=== PATIENT | female | born 1970 | race Caucasian/White ===

== ENCOUNTER 2020-12-30 10:51 | Inpatient (IN) | payer OTHER ==
[~2020-12-30] VITALS: Ht 154.9 cm; Wt 79.4 kg
[2020-12-30] MEDS ORDERED: MAGNESIUM/ALUMINUM HYDROXIDE/SIMETHICONE 30ML UDC PO STA (14:08)
[2020-12-30 15:27] LABS: BASOPHILS % 0.4 % (0.0-2.0); EOSINOPHILS % 0.3 % (0.0-5.0); HEMATOCRIT. 43.4 % (36.0-48.0); HEMOGLOBIN. 14.7 g/dL (12.0-16.0); LYMPHOCYTES % 9.7 % (20.0-50.0); MEAN CORPUSCULAR HEMOGLOBIN 26.7 pg (28.0-32.0); MEAN CORPUSCULAR VOLUME 78.8 fL (81.0-99.0); MONOCYTES % 10.2 % (2.0-8.0); NEUTROPHILS % 79.4 % (40.0-76.0); PLATELET 509 x1000/uL (130-400); RED CELL DISTRIBUTION WIDTH 13.9 % (11.6-14.6)
[2020-12-30 15:31] LABS: CHLORIDE 99 mEq/L (98-107)
[2020-12-30 15:36] LABS: ETHANOL BLOOD < 10 mg/dL
[2020-12-30 15:39] LABS: HCG SCREEN NEGATIVE
[2020-12-30] MEDS ORDERED: HYDROCODONE/ACETAMINOPHEN 10/325MG TABLET PO ONE (17:15)
[2020-12-30 17:45] LABS: CLARITY URINE CLOUDY (CLEAR); COLOR URINE DARK YELLOW (YELLOW); KETONES URINE 1+ (NEGATIVE); LEUKOCYTE ESTERASE URINE 2+ (NEGATIVE); NITRITE URINE POSITIVE (NEGATIVE); OCCULT BLOOD URINE TRACE (NEGATIVE); PH URINE 5.5 (4.5-8.0); PROTEIN URINE 1+ (NEGATIVE); SPECIFIC GRAVITY URINE 1.025 (1.005-1.030)
[2020-12-30 17:56] LABS: *BARBITURATES SCREEN URINE NEGATIVE (NEGATIVE); *BENZODIAZEPINES SCREEN URINE NEGATIVE (NEGATIVE)
[2020-12-30 17:57] LABS: *COCAINE SCREEN URINE NEGATIVE (NEGATIVE); CANNABINOID URINE SCREEN NEGATIVE (NEGATIVE); METHADONE URINE SCREEN NEGATIVE (NEGATIVE); OPIATES URINE SCREEN NEGATIVE (NEGATIVE); PHENCYCLIDINE URINE SCREEN NEGATIVE (NEGATIVE)
[2020-12-30 18:05] LABS: *AMPHETAMINES SCREEN URINE PRESUMTIVE POSITIVE (NEGATIVE)
[2020-12-30] MEDS ORDERED: CEFTRIAXONE 1 G PREMIX 50 ML IV ONE (19:30)
[2020-12-30] MEDS ORDERED: SODIUM CHLORIDE 0.9% 1,000 ML IV ONE (19:30)
[2020-12-30] MEDS ORDERED: METRONIDAZOLE 500 MG PREMIX 100 ML IV ONE (19:30)
[2020-12-31] MEDS ORDERED: MORPHINE SULFATE 4 MG/ML CPJ (NOT FOR IM USE) IV NR (04:00)
[2020-12-31] MEDS ORDERED: ONDANSETRON HCL 4MG/2ML INJ IV NR (04:00)
[2020-12-31] MEDS ORDERED: MAGNESIUM/ALUMINUM HYDROXIDE/SIMETHICONE 30ML UDC PO PRN (04:30)
[2020-12-31] MEDS ORDERED: ACETAMINOPHEN 325MG TABLET PO PRN ×2 (04:30)
[2020-12-31] MEDS ORDERED: DIPHENHYDRAMINE 50MG/ML VIAL IV PRN (04:30)
[2020-12-31] MEDS ORDERED: IPRATROPIUM/ALBUTEROL 0.5-3(2.5)MG/3ML NEB HHN PRN (04:30)
[2020-12-31] MEDS ORDERED: GUAIFENESIN 200MG/10ML SUGAR FREE UDC PO PRN (04:30)
[2020-12-31] MEDS ORDERED: ONDANSETRON HCL 4MG/2ML INJ IV PRN (04:30)
[2020-12-31] MEDS ORDERED: DOCUSATE SODIUM 100MG CAPSULE PO PRN (04:30)
[2020-12-31] MEDS ORDERED: LORAZEPAM 2MG/ML CPJ IV PRN (04:30)
[2020-12-31] MEDS ORDERED: NALOXONE HCL 0.4MG/ML VIAL IV PRN (04:45)
[2020-12-31] MEDS ORDERED: METRONIDAZOLE 500 MG PREMIX 100 ML IV SCH (05:00)
[2020-12-31] MEDS: CLONIDINE 0.1MG TABLET PO PRN (06:11)
[2020-12-31] MEDS: MORPHINE SULFATE 2 MG/ML CPJ (NOT FOR IM USE) IV PRN ×2 (06:23→10:17)
[2020-12-31] MEDS: DEXT 5%/0.45% NACL 1000ML 1,000 ML IV SCH ×2 (06:53→15:00)
[2020-12-31] MEDS ORDERED: CEFTRIAXONE 1 G PREMIX 50 ML IV SCH ×2 (09:00→21:00)
[2020-12-31 11:30] VITALS: BP 142/62
[2020-12-31 11:55] VITALS: BP 142/65
[2020-12-31] MEDS ORDERED: CEFTRIAXONE 1,000 MG in DEXTROSE 5% WATER 50 ML IV NR (12:30)
[2020-12-31] MEDS: METRONIDAZOLE 500 MG PREMIX 100 ML IV SCH (12:58)
[2020-12-31] MEDS: HYDROCODONE/ACETAMINOPHEN 5/325MG TABLET PO PRN ×2 (14:15→20:40)
[2020-12-31 16:00] VITALS: BP 152/60
[2020-12-31 16:52] LABS: HEMOGLOBIN. 13.6 g/dL (12.0-16.0); MEAN CORPUSCULAR HEMOGLOBIN 26.7 pg (28.0-32.0); MEAN CORPUSCULAR VOLUME 78.6 fL (81.0-99.0); MEAN PLATELET VOLUME 7.4 fl (7.4-10.4); PLATELET 457 x1000/uL (130-400); RED BLOOD CELL COUNT 5.09 mill/uL (4.2-5.4); RED CELL DISTRIBUTION WIDTH 13.9 % (11.6-14.6)
[2020-12-31 17:02] LABS: CHLORIDE 100 mEq/L (98-107)
[2020-12-31 17:11] LABS: LDL CHOLESTEROL 47 mg/dL (5-100)
[2020-12-31 17:12] LABS: HDL CHOLESTEROL 43 mg/dL (40-59)
[2020-12-31 17:47] LABS: PLATELET ESTIMATE INCREASED
[2020-12-31 20:00] VITALS: BP 150/88
[2020-12-31] MEDS: CEFTRIAXONE 1,000 MG in DEXTROSE 5% WATER 50 ML IV SCH (20:39)
[2021-01-01] VITALS: BP 157/73
[2021-01-01] MEDS: METRONIDAZOLE 500 MG PREMIX 100 ML IV SCH ×5 (00:37→23:25)
[2021-01-01] MEDS: DEXT 5%/0.45% NACL 1000ML 1,000 ML IV SCH ×3 (01:22→21:33)
[2021-01-01] MEDS: HYDROCODONE/ACETAMINOPHEN 5/325MG TABLET PO PRN ×2 (03:00→08:37)
[2021-01-01 06:39] LABS: CHLORIDE 101 mEq/L (98-107)
[2021-01-01 06:50] LABS: HEMATOCRIT. 37.5 % (36.0-48.0); HEMOGLOBIN. 12.6 g/dL (12.0-16.0); MEAN CORPUSCULAR HEMOGLOBIN 26.6 pg (28.0-32.0); MEAN CORPUSCULAR VOLUME 79.3 fL (81.0-99.0); MEAN PLATELET VOLUME 7.3 fl (7.4-10.4); PLATELET 374 x1000/uL (130-400); RED BLOOD CELL COUNT 4.73 mill/uL (4.2-5.4); RED CELL DISTRIBUTION WIDTH 14.3 % (11.6-14.6)
[2021-01-01 08:00] VITALS: BP 117/68
[2021-01-01] MEDS: CEFTRIAXONE 1,000 MG in DEXTROSE 5% WATER 50 ML IV SCH ×2 (08:37→21:33)
[2021-01-01] MEDS ORDERED: HYDROCODONE/ACETAMINOPHEN 10/325MG TABLET PO PRN (10:45)
[2021-01-01 12:00] VITALS: BP 123/68
[2021-01-01] MEDS: KETOROLAC 30MG/ML VIAL IV PRN ×2 (12:17→23:24)
[2021-01-01 16:44] LABS: PLATELET ESTIMATE NORMAL
[2021-01-01 20:00] VITALS: BP 150/83
[2021-01-02 00:59] VITALS: BP 139/68
[2021-01-02 04:48] VITALS: BP 135/83
[2021-01-02] MEDS: METRONIDAZOLE 500 MG PREMIX 100 ML IV SCH ×3 (06:34→18:08)
[2021-01-02] MEDS: DEXT 5%/0.45% NACL 1000ML 1,000 ML IV SCH ×2 (06:34→17:00)
[2021-01-02 06:45] LABS: BASOPHILS % 0.4 % (0.0-2.0); EOSINOPHILS % 2.5 % (0.0-5.0); HEMATOCRIT. 36.6 % (36.0-48.0); HEMOGLOBIN. 12.2 g/dL (12.0-16.0); LYMPHOCYTES % 9.8 % (20.0-50.0); MEAN CORPUSCULAR HEMOGLOBIN 26.4 pg (28.0-32.0); MEAN CORPUSCULAR VOLUME 79.3 fL (81.0-99.0); MEAN PLATELET VOLUME 7.4 fl (7.4-10.4); MONOCYTES % 8.7 % (2.0-8.0); NEUTROPHILS % 78.6 % (40.0-76.0); PLATELET 363 x1000/uL (130-400); RED BLOOD CELL COUNT 4.62 mill/uL (4.2-5.4); RED CELL DISTRIBUTION WIDTH 14.3 % (11.6-14.6)
[2021-01-02 06:49] LABS: CHLORIDE 104 mEq/L (98-107)
[2021-01-02 08:00] VITALS: BP 135/77
[2021-01-02] MEDS: CEFTRIAXONE 1,000 MG in DEXTROSE 5% WATER 50 ML IV SCH ×2 (08:57→20:33)
[2021-01-02 12:00] VITALS: BP 135/84
[2021-01-02 16:00] VITALS: BP 158/88
[2021-01-02 20:00] VITALS: BP 159/77
[2021-01-03] VITALS: BP 163/84
[2021-01-03] MEDS: METRONIDAZOLE 500 MG PREMIX 100 ML IV SCH ×3 (00:12→12:00)
[2021-01-03] MEDS: CLONIDINE 0.1MG TABLET PO PRN (00:12)
[2021-01-03] MEDS: KETOROLAC 30MG/ML VIAL IV PRN (02:23)
[2021-01-03] MEDS: DEXT 5%/0.45% NACL 1000ML 1,000 ML IV SCH (02:35)
[2021-01-03 04:00] VITALS: BP 157/80
[2021-01-03 05:40] LABS: BASOPHILS % 0.3 % (0.0-2.0); HEMATOCRIT. 34.1 % (36.0-48.0); LYMPHOCYTES % 15.5 % (20.0-50.0); MEAN CORPUSCULAR HEMOGLOBIN 25.9 pg (28.0-32.0); MEAN CORPUSCULAR VOLUME 80.1 fL (81.0-99.0); MEAN PLATELET VOLUME 7.1 fl (7.4-10.4); MONOCYTES % 10.8 % (2.0-8.0); NEUTROPHILS % 69.4 % (40.0-76.0); PLATELET 362 x1000/uL (130-400); RED BLOOD CELL COUNT 4.26 mill/uL (4.2-5.4); RED CELL DISTRIBUTION WIDTH 14.6 % (11.6-14.6)
[2021-01-03 05:55] LABS: CHLORIDE 106 mEq/L (98-107)
[2021-01-03 08:00] VITALS: BP 143/92
[2021-01-03] MEDS: CEFTRIAXONE 1,000 MG in DEXTROSE 5% WATER 50 ML IV SCH (08:56)
[2021-01-03] MEDS ORDERED: LEVO500T89 MT (11:42)
[2021-01-03 11:48] VITALS: BP 143/92
[2021-01-03 12:00] VITALS: BP 157/94
== END 2021-01-03 12:15 | disposition home or self-care (01) | DRG 720 ==
LOC: ER 15:17 → MICUSO 23:08 → 6EST 12-31 08:36 → MICUSO 12-31 09:59 → 6EST 12-31 10:24
PROVIDERS: ADMIT Family Medicine Adult Medicine; ATTEND Family Medicine Adult Medicine
DX: A41.9 Sepsis, unspecified organism (principal); E44.0 Moderate protein-calorie malnutrition; K80.00 Calculus of gallbladder with acute cholecystitis without obstruction; E87.1 Hypo-osmolality and hyponatremia; F15.90 Other stimulant use, unspecified, uncomplicated; N39.0 Urinary tract infection, site not specified; F17.210 Nicotine dependence, cigarettes, uncomplicated; I10 Essential (primary) hypertension; Z88.0 Allergy status to penicillin; Z68.33 Body mass index [BMI] 33.0-33.9, adult; Z71.51 Drug abuse counseling and surveillance of drug abuser
CPT/HCPCS: 36415; 76705; 78227; 80048; 80053; 80061; 80305; 80320; 81003; 84439; 84443; 84703; 85025; 87077; 87186; 93005; 99285; A9537; J0696; J1885; J2270; J2405; J3490; J7030; J7040; J7060; G0480